=== PATIENT | female | born 1940 | race Caucasian/White ===

== ENCOUNTER → 2016-04-06 | Outpatient (CLI) | payer MEDICARE ==
[~2016-04-06] MED LIST: ALBUTEROL SULFATE 0.083% NEB 2.5 MG/3 ML AMPUL NEB ONE
--- NOTE | 2016-04-08 13:51 | Pulmonary Function Test ---
Pulmonary Function Test Date of Procedure:: 04/06/16 INDICATION:: Dyspnea Referring Provider: Gunner'S Mate M: Carina Francis [employer], [employer] - Report Spirometry: FVC 2.81 L 108% postbronchodilator therapy 2.83 L 109% FEV1 2.09 L 106% postbronchodilator therapy 2.21 L 113% FEV1/FVC % 74 postbronchodilator therapy 78 predicted 81 Total lung capacity 3.55 L 78% Vital capacity 2.81 L 108% Inspiratory capacity 2.06 FRC 1.49 84% ERV 0.13 Residual volume 0.73 39% RV/TLC % 21 predicted 42 Diffusion capacity 15 72% DLCO/VA 4.59 130% Lung Volume: Total lung capacity 3.55 L 78% Vital capacity 2.81 L 108% Inspiratory capacity 2.06 FRC 1.49 84% ERV 0.13 Residual volume 0.73 39% RV/TLC % 21 predicted 42 Diffusion Capactity: Diffusion capacity 15 72% DLCO/VA 4.59 130% Impression: Study does not meet criteria for obstructive ventilatory defect. Study does demonstrate some small airways disease responds well to bronchodilator therapy. Mild restrictive ventilatory defect no hyperinflation or air trapping. Mild decrease in diffusion capacity.
== END ==
LOC: RT 10:18
PROVIDERS: ATTEND Internal Medicine Pulmonary Disease
DX: R06.2 Wheezing (principal)
CPT/HCPCS: 94729; 94727; 94060; A9270

== ENCOUNTER → 2017-01-26 | Outpatient (CLI) | payer MEDICARE, OTHER ==
--- NOTE | 2017-01-26 14:23 | WOMENS IMAGING REPORT ---
EXAM DESCRIPTION: BILAT SCREENING MAMMO W/CAD COMPLETED DATE/TIME: 01/26/2017 1:50 pm REASON FOR STUDY: ROUTINE SCREENING; Z12.31 Z12.31 ENCNTR SCREEN MAMMOGRAM FOR MALIGNANT NEOPLASM O F VENESSA COMPARISON: Multiple since 2007 TECHNIQUE: Standard craniocaudal and mediolateral oblique views of each breast recorded using [employer] acquisition. LIMITATIONS: None. FINDINGS: Findings present which are benign by mammographic criteria. No suspicious masses, calcifi cations or architectural distortion. Pertinent benign findings: Stable benign bilateral breast parenchymal calcifications. Read with the assistance of CAD. .[facility] - R2 Cenova Version 1.3 .[facility] Imaging - R2 Cenova Version 1.[address] .[facility] - R2 Cenova Version 2.4 .[facility] [place]2 Cenova Version 2.4 .[facility] - R2 Offset Label Rewinder Version 9.2 Benign mammographic findings may include one or more of the following: Smooth masses, popcorn/rim/co arse calcifications, asymmetries, post-procedure changes, and lesions with long-standing stability. IMPRESSION: BENIGN MAMMOGRAPHIC FINDINGS. BIRADS 2 BREAST DENSITY: b. There are scattered areas of fibroglandular density. BIRAD: 2 BENIGN FINDING(S) RECOMMENDATION: ROUTINE SCREENING Please consider bilateral screening tomosynthesis in January 2018 COMMENT: The patient has been notified of the results by letter per [place] requirements. Additional no tification policies are in place for contacting patient with suspicious or incomplete findings. Quality ID #[id number]: The [employer] recommends an annual screening mammogram for women aged 40 years or over. This facility utilizes a reminder system to ensure that all patients receive reminder letters, and/or direct phone calls for appointments. This includes reminders for routine scr eening mammograms, diagnostic mammograms, or other Breast Imaging Interventions when appropriate. Th is patient will be placed in the appropriate reminder system. The [employer] ([employer]) has developed recommendations for screening MRI of the breast s in certain patient populations, to be used in conjunction with mammography. Breast MRI surveillanc e may be appropriate for women with more than 20% lifetime risk of developing breast cancer as deter mined by genetic testing, significant family history of the disease, or history of mantle radiation f or Hodgkins Disease. ACR Practice Guidelines 2008. TECHNICAL DOCUMENTATION: FINDING NUMBER: (1) ASSESSMENT: (1) JOB ID: [id number] [employer]- All Rights Reserved
== END ==
LOC: WI 13:01
PROVIDERS: ATTEND Family Medicine
DX: Z12.31 Encounter for screening mammogram for malignant neoplasm of breast (principal)
CPT/HCPCS: 77067; G0202